=== PATIENT | male | born 1995 | race Two or more races ===

== ENCOUNTER → 2018-03-21 | Outpatient (REF) | payer MEDICAID, OTHER | LOC: M LAB REF 16:45 | DX: J06.0 Acute laryngopharyngitis (principal) ==

== ENCOUNTER 2019-02-01 15:58 | Emergency (ER) | payer MEDICAID, SELFPAY ==
[~2019-02-01] VITALS: Ht 182.9 cm; Wt 113.7 kg
[2019-02-01 15:59] VITALS: BP 179/88
[2019-02-01] MEDS ORDERED: ACET-683 PO (16:04)
[2019-02-01] MEDS ORDERED: IBUP1TAB7 PO (16:04)
[2019-02-01] MEDS ORDERED: PERC5TAB12 PO (17:38)
[2019-02-01] MEDS ORDERED: CLIN150C14 PO (17:38)
== END 2019-02-01 17:49 | disposition home or self-care (01) ==
LOC: M ED 15:58
DX: K04.7 Periapical abscess without sinus (principal); F17.200 Nicotine dependence, unspecified, uncomplicated; Z88.0 Allergy status to penicillin; Z88.1 Allergy status to other antibiotic agents

== ENCOUNTER 2019-02-01 18:08 | Emergency (ER) | payer SELFPAY ==
[~2019-02-01] VITALS: Ht 182.9 cm; Wt 113.6 kg
[~2019-02-01 18:08] MED LIST: ACET-683 PO; CLIN150C14 PO; IBUP1TAB7 PO; PERC5TAB12 PO
[2019-02-01 18:09] VITALS: BP 156/89
[2019-02-01] MEDS ORDERED: CLINDAMYCIN 150 MG CAP PO ONE (18:30)
[2019-02-01] MEDS ORDERED: PERCOCET 5MG/325MG TAB PO ONE (18:30)
== END 2019-02-01 18:42 | disposition home or self-care (01) ==
LOC: M ED 18:08
DX: Z76.0 Encounter for issue of repeat prescription (principal); K04.7 Periapical abscess without sinus; F17.200 Nicotine dependence, unspecified, uncomplicated; Z88.1 Allergy status to other antibiotic agents; Z88.0 Allergy status to penicillin

== ENCOUNTER 2019-03-17 15:43 | Emergency (ER) | payer SELFPAY ==
[~2019-03-17] VITALS: Ht 182.9 cm; Wt 109.1 kg
[2019-03-17 15:43] VITALS: BP 139/87
== END 2019-03-17 17:28 | disposition left against medical advice (07) ==
LOC: M ED 15:43
DX: Z53.21 Procedure and treatment not carried out due to patient leaving prior to being seen by health care provider (principal)

== ENCOUNTER 2019-04-06 12:08 | Emergency (ER) | payer MEDICAID, SELFPAY ==
[~2019-04-06] VITALS: Ht 182.9 cm; Wt 118.2 kg
--- NOTE | 2019-04-06 13:55 | REP ---
LEFT LOWER EXTREMITY DUPLEX DOPPLER VENOUS ULTRASOUND: Real-time compression and duplex Doppler interrogation of left lower extremity deep venous system is performed. There is thrombus in the peripheral superficial femoral vein as well as throughout the popliteal vein extending into the trifurcations veins in the upper left calf. No thrombus is seen in the more proximal superficial femoral vein nor in the common femoral vein. IMPRESSION: Deep vein thrombosis distal left superficial femoral vein and popliteal vein. Electronically Signed by Domingo Whitfield MD 04/06/2019 03:54 P
[2019-04-06 14:11] LABS: INR 1.05; PROTHROMBIN TIME 13.4 SECONDS (11.8-14.0)
[2019-04-06 14:12] LABS: PARTIAL THROMBOPLASTIN TIME 47.6 SECONDS (25.0-38.4)
[2019-04-06 14:23] LABS: NT-PRO BNP 33 PG/ML (<125); TROPONIN I < 0.02 NG/ML (< 0.10)
[2019-04-06] MEDS ORDERED: PERCOCET 5MG/325MG TAB PO ONE (14:45)
[2019-04-06] MEDS ORDERED: ELIQ5TAB PO (15:26)
[2019-04-06 15:42] VITALS: BP 155/83
[2019-04-06] MEDS ORDERED: NORCO 5/325MG TABLET (BULK FOR ED) PO ONE (15:45)
--- NOTE | 2019-04-06 17:02 | ECGEPIP ---
[facility] - ED Test Date: 2019-04-06 Pat Name: LULI SANDERS Department: Room: - Gender: Male Floor Manager: JHOANA : 1995 Requested By: BRYAN Bernstein PA-C Order Number: [id number] Reading MD: Eduarda Florian Measurements Intervals [place] Rate: 69 P: 42 CA: 149 QRS: 9 QRSD: 106 T: 17 QT: 380 QTc: 407 Interpretive Statements SINUS RHYTHM NO PRIOR Electronically Signed on 04-06-2019 17:01:58 EST by Eduarda Florian
[2019-04-07 11:39] LABS: PTT LUPUS TYPE ANTICOAG SCREEN 2.2 (0-1.2)
[2019-04-07 11:48] LABS: DRVV CONFIRM 36.2 SEC; LUPUS CONFIRM RATIO 0.9
[2019-04-07 11:52] LABS: NORMALIZED RATIO 2.44 (0.00-1.20)
[2019-04-11 00:07] LABS: HEXAGONAL PHASE PHOSPHOLIPID 11 sec (0-11)
[2019-04-13 10:06] LABS: ANTI THROMBIN 3 ANTIGEN IMMUNO 123 % (72-124); ANTI THROMBIN 3 FUNCT ACTIVITY 117 % (75-135); CARDIOLIPIN IGA ANTIBODY <9 APL U/mL (0-11); CARDIOLIPIN IGG ANTIBODY 66 GPL U/mL (0-14); CARDIOLIPIN IGM ANTIBODY 19 MPL U/mL (0-12); PHOSPHOLIPIDS LEVEL 224 mg/dL (150-250); PROTEIN C FUNCTIONAL ACTIVITY 124 % (73-180); PROTEIN S FUNCTIONAL ACTIVITY 81 % (63-140)
== END 2019-04-06 15:41 | disposition left against medical advice (07) ==
LOC: M ED 12:08
DX: I82.402 Acute embolism and thrombosis of unspecified deep veins of left lower extremity (principal); Z53.21 Procedure and treatment not carried out due to patient leaving prior to being seen by health care provider; F17.200 Nicotine dependence, unspecified, uncomplicated; Z88.0 Allergy status to penicillin; Z88.1 Allergy status to other antibiotic agents

== ENCOUNTER 2019-07-02 12:56 | Emergency (ER) | payer MEDICAID, OTHER ==
[~2019-07-02] VITALS: Ht 182.9 cm; Wt 117.3 kg
[~2019-07-02 12:56] MED LIST changes: +ELIQ5TAB PO
[2019-07-02] MEDS ORDERED: ELIQ5TAB PO (13:04)
[2019-07-02 13:46] LABS: BASO # 0.1 10^3/uL (0.0-0.2); EOS # 0.2 10^3/uL (0.0-0.5); EOS % 3.1 % (0.0-3.0); HEMATOCRIT 51.2 % (42.0-52.0); HEMOGLOBIN 17.6 g/dl (13.5-17.5); LYMPH # 1.5 10^3/uL (1.5-5.0); LYMPH % 19.6 % (24.0-44.0); MEAN CORPUSCULAR HEMOGLOBIN 29.7 pg (27.0-33.0); MEAN CORPUSCULAR HGB CONC 34.4 g/dl (32.0-36.5); MEAN CORPUSCULAR VOLUME 86.3 fl (80.0-96.0); MONO # 0.8 10^3/uL (0.0-0.8); MONO % 10.2 % (0.0-5.0); NEUTROPHILS # 5.1 10^3/uL (1.5-8.5); NEUTROPHILS % 65.6 % (36.0-66.0); PLATELET COUNT, AUTOMATED 146 10^3/uL (150-450); RED BLOOD COUNT 5.93 10^6/uL (4.30-6.10); WHITE BLOOD COUNT 7.8 10^3/uL (4.0-10.0)
[2019-07-02 14:14] LABS: BLOOD UREA NITROGEN 9 MG/DL (7-18); CALCIUM LEVEL 9.5 MG/DL (8.5-10.1); CARBON DIOXIDE LEVEL 26 MEQ/L (21-32); CHLORIDE LEVEL 104 MEQ/L (98-107); CREATININE FOR GFR 0.96 MG/DL (0.70-1.30); GLOMERULAR FILTRATION RATE > 60.0 (>60); GLUCOSE, FASTING 136 MG/DL (70-100); POTASSIUM SERUM 3.5 MEQ/L (3.5-5.1); SODIUM LEVEL 136 MEQ/L (136-145)
--- NOTE | 2019-07-02 14:17 | REP ---
CHEST, TWO VIEWS: There is no evidence of acute infiltrate. No pleural effusion is seen. The heart is normal in size. The mediastinal silhouette is unremarkable. The visualized osseous structures are intact. IMPRESSION: No acute pulmonary disease. Electronically Signed by Domingo Whitfield MD 07/03/2019 04:42 P
[2019-07-02] MEDS ORDERED: ISOVUE-370 76% 100ML VIAL (Q9967) As Ordered ONE (14:46)
--- NOTE | 2019-07-02 15:42 | REP ---
CT pulmonary angiogram: With IV contrast. History: DVT. Chest pain. Possible pulmonary embolus. Comparison studies: No comparison chest CT study. Contrast dose: 75 mL of Isovue [address] technique: Helical scanning is acquired and overlapping 1.5 mm and contiguous 3 mm axial images are reformatted. In addition, maximum intensity projection and multiplanar re-formation images are generated in sagittal and coronal imaging projections. CT pulmonary angiographic findings: There is good opacification of the pulmonary arterial tree. There is no CT evidence of pulmonary embolus. There is no evidence of aortic dissection or aneurysm. No hilar or mediastinal mass or adenopathy is observed. No pleural or pericardial effusion is seen. The lung yung are clear. No extrathoracic mass or adenopathy is seen. There is bilateral gynecomastia and bilateral nipple jewelry is noted. No significant bony abnormality is seen. There is diffuse fatty infiltration of the liver moderate in degree. No adrenal lesion is seen. The visualized upper abdominal structures are otherwise unremarkable. Impression: No CT evidence of pulmonary embolus. No active cardiopulmonary disease seen. Moderate diffuse fatty infiltration of the liver. Electronically Signed by Nicolas Villalobos MD 07/02/2019 08:08 P
[2019-07-02 16:06] VITALS: BP 150/78
--- NOTE | 2019-07-02 17:34 | ECGEPIP ---
[facility] - ED Test Date: 2019-07-02 Pat Name: LULI SANDERS Department: Room: - Gender: Male Trimmer Sawyer: britton : 1995 Requested By: Eduarda Florian Order Number: [id number] Reading MD: Thierry Quinones Measurements Intervals [place] Rate: 66 P: 49 MI: 155 QRS: 16 QRSD: 108 T: 24 QT: 403 QTc: 423 Interpretive Statements SINUS RHYTHM POOR R WAVE PROGRESSION POSSIBLE INCOMPLETE RIGHT BUNDLE BRANCH BLOCK SIMILAR TO 04/06/19 Electronically Signed on 07-02-2019 17:34:03 EST by Thierry Quinones
== END 2019-07-02 16:29 | disposition home or self-care (01) ==
LOC: M ED 12:56
DX: R07.89 Other chest pain (principal); K76.0 Fatty (change of) liver, not elsewhere classified; Z86.718 Personal history of other venous thrombosis and embolism; F17.200 Nicotine dependence, unspecified, uncomplicated; Z79.01 Long term (current) use of anticoagulants; Z88.0 Allergy status to penicillin
CPT/HCPCS: 71046; 71275; 80048; 85025; 85379; 93005; 99284; Q9967

== ENCOUNTER → 2021-11-16 | Outpatient (REF) | payer OTHER, MEDICAID ==
[~2021-11-16] MED LIST changes: -CLIN150C14 PO; +CLIN150C17 PO
[2021-11-17 12:26] LABS: APPEARANCE, URINE HAZY (CLEAR); BACTERIA, URINE AUTO NEGATIVE (NEGATIVE); BILIRUBIN, URINE AUTO NEGATIVE (NEGATIVE); BLOOD, URINE BLOOD NEGATIVE (NEGATIVE); CALCIUM OXALATE CRYSTALS SMALL; COLOR, URINE YELLOW (YELLOW); GLUCOSE, URINE (UA) AUTO NEGATIVE (NEGATIVE); KETONE, URINE AUTO NEGATIVE (NEGATIVE); LEUKOCYTE ESTERASE, URINE AUTO NEGATIVE (NEGATIVE); MUCUS, URINE SMALL (NEGATIVE); NITRITE, URINE AUTO NEGATIVE (NEGATIVE); PROTEIN, URINE AUTO NEGATIVE (NEGATIVE); RBC, URINE AUTO 0 /HPF (0-3); SPECIFIC GRAVITY URINE AUTO 1.025 (1.002-1.035); SQUAMOUS EPITHELIAL CELL UR AU 0 /HPF (0-6); UROBILINOGEN, URINE AUTO 0.2 mg/dL (0.0-2.0); WBC, URINE AUTO 1 /HPF (0-3)
== END ==
LOC: M LAB REF 11:12
PROVIDERS: ATTEND Physician Assistant
DX: R30.9 Painful micturition, unspecified (principal)

== ENCOUNTER → 2022-11-01 | Outpatient (CLI) | payer OTHER, MEDICAID ==
[2022-11-01 16:57] LABS: HEMATOCRIT 42.6 % (42.0-52.0); HEMOGLOBIN 13.9 g/dl (13.5-17.5); MEAN CORPUSCULAR HEMOGLOBIN 29.8 pg (27.0-33.0); MEAN CORPUSCULAR HGB CONC 32.6 g/dl (32.0-36.5); MEAN CORPUSCULAR VOLUME 91.2 fl (80.0-96.0); PLATELET COUNT, AUTOMATED 163 10^3/uL (150-450); RED BLOOD COUNT 4.67 10^6/uL (4.30-6.10); WHITE BLOOD COUNT 6.6 10^3/uL (4.0-10.0)
[2022-11-01 17:16] LABS: HEMOGLOBIN A1c 5.7 % (4.0-6.0)
[2022-11-01 17:27] LABS: CHOLESTEROL RISK RATIO 3.22 (<5); HDL CHOLESTEROL 44.7 MG/DL (>40); LDL CHOLESTEROL 71.3 MG/DL (<100); NON-HDL-C 99.3 MG/DL
[2022-11-01 17:28] LABS: CREATININE, URINE 71.4 MG/DL
== END ==
LOC: M WUC 11:16
PROVIDERS: ATTEND Physician Assistant
DX: E11.9 Type 2 diabetes mellitus without complications (principal)

== ENCOUNTER → 2023-07-10 | Outpatient (CLI) | payer OTHER, MEDICAID ==
[~2023-07-10] MED LIST changes: +AMLO10TA PO; +DEPA250T32 PO; +ENOX100I3 SC; +FAMO20TA5; +FINA5TAB2; +LEXA1TAB2 PO; +LOVE1INJ SC; +METF-839 PO; +METH5SOL10 PO; +MULT-90 PO; +OXYC-517 PO; +PROTPAK PO; +QUET1TAB17 PO; +TOPA1TAB PO
== END ==
LOC: M SOG 08:08
PROVIDERS: ATTEND Physician Assistant
DX: M25.532 Pain in left wrist (principal); M25.572 Pain in left ankle and joints of left foot

== ENCOUNTER → 2023-11-14 | Outpatient (REF) | payer OTHER, MEDICAID ==
[2023-11-15 17:30] LABS: CREATININE, URINE 118.1 MG/DL
[2023-11-15 17:31] LABS: MAU/CREAT RATIO 4.2 MCG/MG (0.0-30.0)
== END ==
LOC: M LAB REF 16:08
PROVIDERS: ATTEND Physician Assistant
DX: E11.9 Type 2 diabetes mellitus without complications (principal)

== ENCOUNTER 2024-05-03 01:26 | Emergency (ER) | payer MEDICAID, MEDICARE, OTHER ==
[2024-05-03 06:46] VITALS: BP 121/73; TEMP 97.3; O2SAT 99
== END 2024-05-03 06:56 | disposition home or self-care (01) ==
LOC: M ED 01:26
DX: S00.03XA Contusion of scalp, initial encounter (principal); Y04.0XXA Assault by unarmed brawl or fight, initial encounter; Z87.820 Personal history of traumatic brain injury; Z88.0 Allergy status to penicillin; Z88.1 Allergy status to other antibiotic agents; Y92.009 Unspecified place in unspecified non-institutional (private) residence as the place of occurrence of the external cause; Y93.89 Activity, other specified; Y99.9 Unspecified external cause status; Z79.899 Other long term (current) drug therapy

== ENCOUNTER → 2024-07-02 | Outpatient (CLI) | payer OTHER ==
[2024-07-02 17:21] LABS: HEMATOCRIT 43.6 % (42.0-52.0); HEMOGLOBIN 14.2 g/dl (13.5-17.5); MEAN CORPUSCULAR HEMOGLOBIN 30.3 pg (27.0-33.0); MEAN CORPUSCULAR HGB CONC 32.6 g/dl (32.0-36.5); MEAN CORPUSCULAR VOLUME 93.2 fl (80.0-96.0); PLATELET COUNT, AUTOMATED 140 10^3/uL (150-450); RED BLOOD COUNT 4.68 10^6/uL (4.30-6.10); WHITE BLOOD COUNT 7.8 10^3/uL (4.0-10.0)
[2024-07-02 17:54] LABS: ALBUMIN 4.1 G/DL (3.2-5.2); ALKALINE PHOSPHATASE 49 U/L (40-129); ALT/SGPT 16 U/L (7.0-40); AST/SGOT 19 U/L (<34); BILIRUBIN,TOTAL 0.2 MG/DL (0.3-1.2); BLOOD UREA NITROGEN 15 MG/DL (9-23); CALCIUM LEVEL 9.2 MG/DL (8.5-10.1); CARBON DIOXIDE LEVEL 25 MMOL/L (20-31); CHLORIDE LEVEL 109 MMOL/L (98-107); CHOLESTEROL LEVEL 140 MG/DL (<200); CHOLESTEROL RISK RATIO 3.01 (<5); CREATININE FOR GFR 0.75 MG/DL (0.70-1.30); GLOMERULAR FILTRATION RATE > 60.0 (>60); GLUCOSE, FASTING 93 MG/DL (60-100); HDL CHOLESTEROL 46.4 MG/DL (>40); LDL CHOLESTEROL 54.4 MG/DL (<100); NON-HDL-C 93.6 MG/DL; POTASSIUM SERUM 4.5 MMOL/L (3.5-5.1); SODIUM LEVEL 144 MMOL/L (136-145); TOTAL PROTEIN 7.6 G/DL (5.7-8.2); TRIGLYCERIDES LEVEL 196 MG/DL (<150)
[2024-07-02 18:07] LABS: CREATININE, URINE 283.5 MG/DL; MAU/CREAT RATIO 5.6 MCG/MG (0.0-30.0)
== END ==
LOC: M WUC 12:02
PROVIDERS: ATTEND Physician Assistant
DX: E11.9 Type 2 diabetes mellitus without complications (principal)

== ENCOUNTER 2024-08-12 18:05 | Emergency (ER) | payer OTHER ==
[~2024-08-12] VITALS: Ht 182.9 cm; Wt 90.9 kg
[2024-08-12 18:25] VITALS: TEMP 97.2
[2024-08-12] MEDS: DIVALPROEX 250MG *ER* TAB PO ONE (20:01)
[2024-08-12] MEDS: oxyCODONE 5MG TAB PO ONE (20:01)
[2024-08-12 20:18] VITALS: BP 108/63; O2SAT 98
== END 2024-08-12 20:27 | disposition short-term general hospital (02) ==
LOC: M ED 18:05 → EDBD 18:05 → M ED 20:27
DX: S00.93XA Contusion of unspecified part of head, initial encounter (principal); S00.81XA Abrasion of other part of head, initial encounter; W06.XXXA Fall from bed, initial encounter; G93.89 Other specified disorders of brain; Z86.79 Personal history of other diseases of the circulatory system; Y92.003 Bedroom of unspecified non-institutional (private) residence as the place of occurrence of the external cause; Y93.89 Activity, other specified; Y99.9 Unspecified external cause status; Z79.899 Other long term (current) drug therapy; Z79.4 Long term (current) use of insulin; Z88.0 Allergy status to penicillin; Z88.1 Allergy status to other antibiotic agents; Z88.5 Allergy status to narcotic agent

== ENCOUNTER 2024-11-04 15:26 | Emergency (ER) | payer MEDICARE, MEDICAID ==
[~2024-11-04] VITALS: Ht 182.9 cm; Wt 90.0 kg
[~2024-11-04 15:26] MED LIST changes: +AMLO-751 PO; -AMLO10TA PO; -DEPA250T32 PO; +DIVA-65 PO; +TRAZ-252 PO; +ZOLO100T PO
[2024-11-04 15:38] VITALS: BP 142/72; TEMP 98.1; O2SAT 98
== END 2024-11-04 16:07 | disposition left against medical advice (07) ==
LOC: EDBD 15:26 → M ED 15:26
DX: Z53.21 Procedure and treatment not carried out due to patient leaving prior to being seen by health care provider (principal)

== ENCOUNTER 2024-11-08 19:18 | Emergency (ER) | payer MEDICARE, MEDICAID ==
[2024-11-08 19:36] VITALS: TEMP 97.1
[2024-11-08 22:05] LABS: BASO # 0.1 10^3/uL (0.0-0.2); BASO % 0.6 % (0.0-1.0); EOS # 0.1 10^3/uL (0.0-0.5); EOS % 0.8 % (0.0-3.0); LYMPH # 2.7 10^3/uL (1.5-5.0); LYMPH % 31.2 % (24.0-44.0); MONO # 1.1 10^3/uL (0.0-0.8); MONO % 12.6 % (2.0-8.0); NEUTROPHILS # 4.7 10^3/uL (1.5-8.5); NEUTROPHILS % 54.0 % (36.0-66.0); PLATELET COUNT, AUTOMATED 165 10^3/uL (150-450)
[2024-11-08] MEDS: NS (Normal Saline) 0.9% 1,000 ML IV ONE (23:13)
[2024-11-09 00:28] VITALS: BP 115/75; O2SAT 98
== END 2024-11-09 00:36 | disposition home or self-care (01) ==
LOC: M ED 19:18
DX: M25.512 Pain in left shoulder (principal); W06.XXXA Fall from bed, initial encounter; Z59.41 Food insecurity; M70.22 Olecranon bursitis, left elbow; E11.9 Type 2 diabetes mellitus without complications; F31.9 Bipolar disorder, unspecified; F43.10 Post-traumatic stress disorder, unspecified; Z79.4 Long term (current) use of insulin; Z79.899 Other long term (current) drug therapy; Z88.0 Allergy status to penicillin; Z88.1 Allergy status to other antibiotic agents; Z88.5 Allergy status to narcotic agent; Z88.8 Allergy status to other drugs, medicaments and biological substances; Y92.009 Unspecified place in unspecified non-institutional (private) residence as the place of occurrence of the external cause; Y93.89 Activity, other specified; Y99.9 Unspecified external cause status

== ENCOUNTER 2024-11-11 02:01 | Emergency (ER) | payer MEDICARE, MEDICAID ==
[~2024-11-11] VITALS: Ht 182.9 cm; Wt 90.9 kg
[2024-11-11 02:20] VITALS: BP 116/59; TEMP 98.3; O2SAT 99
== END 2024-11-11 03:10 | disposition left against medical advice (07) ==
LOC: M ED 02:01 → EDBD 02:01 → M ED 03:10
DX: Z53.21 Procedure and treatment not carried out due to patient leaving prior to being seen by health care provider (principal)

== ENCOUNTER 2024-11-21 02:33 | Observation (INO) | payer MEDICARE, MEDICAID ==
[~2024-11-21] VITALS: Ht 182.9 cm; Wt 91.6 kg
[~2024-11-21 02:33] MED LIST changes: -FAMO20TA5; +FAMO20TA5 PO; -FINA5TAB2; +FINA5TAB2 PO
[2024-11-21 03:49] LABS: PLATELET COUNT, AUTOMATED 223 10^3/uL (150-450)
[2024-11-21 04:05] LABS: ETHYL ALCOHOL (ETHANOL) < 0.003 % (0.000-0.010)
[2024-11-21 04:06] LABS: SALICYLATE LEVEL < 3.0 MG/DL (<30)
[2024-11-21 04:07] LABS: ALT/SGPT 21 U/L (7.0-40); AST/SGOT 17 U/L (<34); CALCIUM LEVEL 9.6 MG/DL (8.5-10.1); CARBON DIOXIDE LEVEL 28 MMOL/L (20-31); CHLORIDE LEVEL 104 MMOL/L (98-107); CREATININE FOR GFR 0.70 MG/DL (0.70-1.30); GLOMERULAR FILTRATION RATE > 90.0 (>60); POTASSIUM SERUM 4.6 MMOL/L (3.5-5.1); SODIUM LEVEL 143 MMOL/L (136-145)
[2024-11-21 04:14] LABS: AMPHETAMINES LEVEL URINE NEGATIVE (NEGATIVE); BENZODIAZEPINES URINE NEGATIVE (NEGATIVE)
[2024-11-21 04:15] LABS: BARBITURATES URINE NEGATIVE (NEGATIVE); COCAINE METABOLITE URINE NEGATIVE (NEGATIVE); METHADONE URINE NEGATIVE (NEGATIVE); OPIATES URINE NEGATIVE (NEGATIVE); PHENCYCLIDINE URINE NEGATIVE (NEGATIVE)
[2024-11-21 04:17] LABS: CANNABINOIDS URINE POSITIVE (NEGATIVE)
[2024-11-21] MEDS ORDERED: TAMS1CAP17 PO (05:58)
[2024-11-21] MEDS ORDERED: B-1100TA2 PO (05:58)
[2024-11-21] MEDS ORDERED: DILT60CASR PO (05:58)
[2024-11-21] MEDS ORDERED: ALBU8.5H INH (05:58)
[2024-11-21] MEDS ORDERED: CETI-24 PO (05:58)
[2024-11-21] MEDS ORDERED: HOME MED LIST COMPLETE! XX SCH (06:05)
[2024-11-21] MEDS: ACETAMINOPHEN 500 MG TAB PO ONE (08:13)
[2024-11-21] MEDS ORDERED: IBUPROFEN 400 MG TAB PO PRN (11:20)
[2024-11-21] MEDS ORDERED: MAALOX 30 ML SUSP *UDC PO PRN (11:20)
[2024-11-21] MEDS ORDERED: LORazepam 1 MG TAB PO PRN (11:20)
[2024-11-21] MEDS ORDERED: HALOPERIDOL 5 MG TAB PO PRN (11:20)
[2024-11-21] MEDS ORDERED: MOM 30 ML SUSPENSION UDC PO PRN (11:20)
[2024-11-21] MEDS ORDERED: traZODone 50 MG TAB PO PRN (11:20)
[2024-11-21] MEDS ORDERED: ACETAMINOPHEN 325 MG TAB PO PRN (11:20)
[2024-11-21] MEDS ORDERED: ALBUTEROL 90 MCG/ACT 8 GM HFA INHALER INH PRN (11:20)
[2024-11-21] MEDS ORDERED: OLANZapine 5 MG TAB PO PRN (11:20)
[2024-11-21] MEDS: NICOTINE 14 MG/24 HR TRANSDERMAL TD SCH (11:57)
[2024-11-21] MEDS ORDERED: **NOTE PATIENT COMMENT** MISC XX SCH (16:25)
[2024-11-21] MEDS ORDERED: OXYC-517 PO (16:40)
[2024-11-21 17:05] LABS: VITAMIN B12 LEVEL 711 PG/ML (211-911)
[2024-11-21 17:06] LABS: FREE T4 1.12 NG/DL (0.89-1.76)
[2024-11-21 17:21] LABS: ESTIMATED AVERAGE GLUCOSE 120.0 MG/DL (60-110)
[2024-11-21 18:16] VITALS: BP 135/78; TEMP 98.6; O2SAT 95
[2024-11-21 20:00] VITALS: BP 134/87; TEMP 97; O2SAT 99
[2024-11-21] MEDS: FAMOTIDINE 20 MG TAB PO SCH (21:54)
[2024-11-21] MEDS: traZODone 50 MG TAB PO SCH (21:55)
[2024-11-21] MEDS: DIVALPROEX 250 MG TAB PO SCH (21:55)
[2024-11-21] MEDS: ENOXAPARIN 100 MG/1 ML SYRINGE (J1650 PER 10MG) SC SCH (21:57)
[2024-11-22 04:00] VITALS: BP 116/62; TEMP 97.7; O2SAT 93
[2024-11-22] MEDS ORDERED: metFORMIN 500 MG TAB PO SCH (09:00)
[2024-11-22] MEDS ORDERED: amLODIPine 10 MG TAB PO SCH (09:00)
[2024-11-22] MEDS: SERTRALINE 100 MG TAB PO SCH (09:22)
[2024-11-22] MEDS: TOPIRAMATE 25 MG TAB PO SCH (09:22)
[2024-11-22] MEDS: THIAMINE 100 MG TAB PO SCH (09:23)
[2024-11-22] MEDS: PANTOPRAZOLE 40MG TAB PO SCH (09:23)
[2024-11-22] MEDS: FINASTERIDE 5 MG TAB PO SCH (09:23)
[2024-11-22] MEDS: TAMSULOSIN 0.4 MG CAP PO SCH (09:23)
[2024-11-22] MEDS: dilTIAZem 120 MG **CD** CAPSULE PO SCH (09:24)
[2024-11-22 10:29] LABS: PLATELET COUNT, AUTOMATED 195 10^3/uL (150-450)
[2024-11-22 11:02] LABS: VALPROIC ACID (DEPAKOTE) 42.0 UG/ML (50.0-100.0)
[2024-11-22 11:03] LABS: CALCIUM LEVEL 9.0 MG/DL (8.5-10.1); CARBON DIOXIDE LEVEL 27 MMOL/L (20-31); CHLORIDE LEVEL 102 MMOL/L (98-107); CHOLESTEROL LEVEL 155 MG/DL (<200); CHOLESTEROL RISK RATIO 2.87 (<5); CREATININE FOR GFR 0.80 MG/DL (0.70-1.30); GLOMERULAR FILTRATION RATE > 90.0 (>60); LDL CHOLESTEROL 72.5 MG/DL (<100); MAGNESIUM LEVEL 2.0 MG/DL (1.8-2.4); NON-HDL-C 101.1 MG/DL; POTASSIUM SERUM 4.4 MMOL/L (3.5-5.1); SODIUM LEVEL 140 MMOL/L (136-145); TRIGLYCERIDES LEVEL 143 MG/DL (<150)
[2024-11-22 13:00] VITALS: BP 120/77; TEMP 97.7; O2SAT 96
[2024-11-22] MEDS ORDERED: ISOVUE-370 76% 100 ML VIAL As Ordered ONE (19:48)
[2024-11-22 20:00] VITALS: BP 122/88; TEMP 97.5; O2SAT 99
[2024-11-22] MEDS: MIRALAX *UNIT DOSE* 17 GM PACKET PO PRN (22:00)
[2024-11-22] MEDS: SENNA 8.6 MG TAB PO PRN (22:02)
[2024-11-22] MEDS: BISACODYL 10 MG SUPP PR PRN (22:02)
[2024-11-23 04:00] VITALS: BP 133/76; TEMP 97.3; O2SAT 100
[2024-11-23] MEDS: FLEET ENEMA PR PRN (05:09)
[2024-11-23 07:43] LABS: PLATELET COUNT, AUTOMATED 163 10^3/uL (150-450)
[2024-11-23 08:08] LABS: VALPROIC ACID (DEPAKOTE) 92.7 UG/ML (50.0-100.0)
[2024-11-23 08:10] LABS: CALCIUM LEVEL 8.8 MG/DL (8.5-10.1); CARBON DIOXIDE LEVEL 29 MMOL/L (20-31); CHLORIDE LEVEL 101 MMOL/L (98-107); CREATININE FOR GFR 0.73 MG/DL (0.70-1.30); GLOMERULAR FILTRATION RATE > 90.0 (>60); MAGNESIUM LEVEL 2.0 MG/DL (1.8-2.4); POTASSIUM SERUM 4.1 MMOL/L (3.5-5.1); SODIUM LEVEL 141 MMOL/L (136-145)
[2024-11-23] MEDS: MIRALAX *UNIT DOSE* 17 GM PACKET PO SCH (09:00)
[2024-11-23] MEDS: SENNOSIDES/DOCUSATE SODIUM 8.6 MG/50MG TAB PO SCH (09:00)
[2024-11-23] MEDS: DIVALPROEX 500 MG TAB PO SCH (09:18)
[2024-11-23 09:23] VITALS: BP 123/78
[2024-11-23 12:00] VITALS: BP 126/75; TEMP 96.6; O2SAT 100
[2024-11-23 21:29] VITALS: BP 112/59; TEMP 97.5; O2SAT 99
[2024-11-24 05:48] VITALS: BP 130/72; TEMP 97.5; O2SAT 98
[2024-11-24] MEDS ORDERED: DIVA-65 PO (12:04)
[2024-11-24] MEDS ORDERED: MAALOX 30 ML SUSP *UDC PO PRN (12:40)
[2024-11-24] MEDS ORDERED: ACETAMINOPHEN 325 MG TAB PO PRN (12:40)
[2024-11-24] MEDS ORDERED: IBUPROFEN 400 MG TAB PO PRN (12:40)
[2024-11-24] MEDS ORDERED: MOM 30 ML SUSPENSION UDC PO PRN (12:40)
== END 2024-11-24 14:55 ==
LOC: M ED 02:33 → M ED INP 02:34 → UNDOADMOB 11:18 → INTOOBSV 11:18 → M MS5PR 17:50 → M ED INP 17:50 → M MS5PR 17:50
PROVIDERS: ADMIT Internal Medicine; ATTEND Student in an Organized Health Care Education/Training Program
DX: R45.851 Suicidal ideations (principal); Z86.79 Personal history of other diseases of the circulatory system; I69.351 Hemiplegia and hemiparesis following cerebral infarction affecting right dominant side; Z79.01 Long term (current) use of anticoagulants; Z86.718 Personal history of other venous thrombosis and embolism; R73.03 Prediabetes; I10 Essential (primary) hypertension; F43.10 Post-traumatic stress disorder, unspecified; F32.A Depression, unspecified; K59.00 Constipation, unspecified; Z79.899 Other long term (current) drug therapy

== ENCOUNTER 2024-11-24 13:50 | Inpatient (IN) | payer MEDICARE, MEDICAID ==
[~2024-11-24] VITALS: Ht 182.9 cm; Wt 79.5 kg
[~2024-11-24 13:50] MED LIST changes: +ALBU8.5H INH; +B-1100TA2 PO; +CETI-24 PO; +DILT60CASR PO; +TAMS1CAP17 PO
[2024-11-24] MEDS ORDERED: MOM 30 ML SUSPENSION UDC PO PRN (14:10)
[2024-11-24] MEDS ORDERED: MAALOX 30 ML SUSP *UDC PO PRN (16:00)
[2024-11-24] MEDS ORDERED: ALBUTEROL 90 MCG/ACT 8 GM HFA INHALER INH PRN (16:00)
[2024-11-24] MEDS ORDERED: HOME MED LIST COMPLETE! XX SCH (16:10)
[2024-11-24 16:25] VITALS: BP 109/72; TEMP 97.8; O2SAT 97
[2024-11-24] MEDS: traZODone 50 MG TAB PO SCH (20:17)
[2024-11-24] MEDS: DIVALPROEX 500 MG TAB PO SCH (20:17)
[2024-11-24] MEDS: ACETAMINOPHEN 325 MG TAB PO PRN (20:18)
[2024-11-25 06:15] VITALS: BP_SYST 125; BP_SYST 141; BP_DIAS 56; BP_DIAS 72; TEMP 97.6; TEMP 97.7; O2SAT 100
[2024-11-25] MEDS: TAMSULOSIN 0.4 MG CAP PO SCH (09:16)
[2024-11-25] MEDS: TOPIRAMATE 25 MG TAB PO SCH (09:16)
[2024-11-25] MEDS: FINASTERIDE 5 MG TAB PO SCH (09:16)
[2024-11-25] MEDS: CETIRIZINE 10 MG TAB PO SCH (09:16)
[2024-11-25] MEDS: SERTRALINE 100 MG TAB PO SCH (09:16)
[2024-11-25] MEDS: THIAMINE 100 MG TAB PO SCH (09:16)
[2024-11-25 09:46] LABS: CREATININE FOR GFR 0.78 MG/DL (0.70-1.30); GLOMERULAR FILTRATION RATE > 90.0 (>60)
[2024-11-25] MEDS: IBUPROFEN 400 MG TAB PO PRN (11:16)
[2024-11-25] MEDS: ENOXAPARIN 100 MG/1 ML SYRINGE (J1650 PER 10MG) SC SCH (13:05)
[2024-11-25 15:45] VITALS: BP 133/80; TEMP 98; O2SAT 98
[2024-11-25] MEDS: ACETAMINOPHEN 325 MG TAB PO ONE (16:26)
[2024-11-25] MEDS: QUEtiapine FUMARATE 50MG TAB PO SCH (22:15)
[2024-11-26 06:46] VITALS: BP 132/59; TEMP 97.6; O2SAT 98
[2024-11-26 15:35] VITALS: BP 125/61; TEMP 98.5; O2SAT 98
[2024-11-26] MEDS: traZODone 50 MG TAB PO PRN (21:23)
[2024-11-27 06:56] VITALS: BP 103/58; TEMP 97.4; O2SAT 96
[2024-11-27] MEDS ORDERED: QUET50TA4 PO (09:25)
== END 2024-11-27 11:56 | disposition home or self-care (01) | DRG 881 ==
LOC: M PSY 15:05
PROVIDERS: ADMIT General Practice; ATTEND General Practice
DX: F32.A Depression, unspecified (principal); R45.851 Suicidal ideations; I69.354 Hemiplegia and hemiparesis following cerebral infarction affecting left non-dominant side; Z87.820 Personal history of traumatic brain injury; F12.90 Cannabis use, unspecified, uncomplicated; F17.200 Nicotine dependence, unspecified, uncomplicated; Z86.718 Personal history of other venous thrombosis and embolism; R73.03 Prediabetes; I10 Essential (primary) hypertension; F43.10 Post-traumatic stress disorder, unspecified; K59.00 Constipation, unspecified; Z79.01 Long term (current) use of anticoagulants; Z79.899 Other long term (current) drug therapy; Z88.0 Allergy status to penicillin; Z88.1 Allergy status to other antibiotic agents; Z88.5 Allergy status to narcotic agent; Z91.041 Radiographic dye allergy status

== ENCOUNTER 2024-11-30 18:07 | Emergency (ER) | payer MEDICARE, MEDICAID ==
[~2024-11-30] VITALS: Ht 182.9 cm; Wt 93.3 kg
[~2024-11-30 18:07] MED LIST changes: +QUET50TA4 PO
[2024-11-30 18:22] VITALS: BP 121/63; TEMP 99; O2SAT 99
== END 2024-11-30 19:31 | disposition left against medical advice (07) ==
LOC: M ED 18:07
DX: R53.1 Weakness (principal); R29.6 Repeated falls; I10 Essential (primary) hypertension; F43.10 Post-traumatic stress disorder, unspecified; F32.A Depression, unspecified; Z86.718 Personal history of other venous thrombosis and embolism; Z79.01 Long term (current) use of anticoagulants; Z91.041 Radiographic dye allergy status; Z88.0 Allergy status to penicillin; Z88.1 Allergy status to other antibiotic agents; Z88.5 Allergy status to narcotic agent; Z88.8 Allergy status to other drugs, medicaments and biological substances; Z79.52 Long term (current) use of systemic steroids; Z79.899 Other long term (current) drug therapy; Z53.9 Procedure and treatment not carried out, unspecified reason

== ENCOUNTER 2024-12-03 05:41 | Emergency (ER) | payer MEDICARE, MEDICAID ==
[~2024-12-03] VITALS: Ht 182.9 cm; Wt 79.5 kg
[2024-12-03 06:15] VITALS: BP 152/76; TEMP 97.8; O2SAT 97
[2024-12-03 06:51] LABS: PLATELET COUNT, AUTOMATED 189 10^3/uL (150-450)
[2024-12-03 07:18] LABS: ETHYL ALCOHOL (ETHANOL) 0.003 % (0.000-0.010)
[2024-12-03 07:20] LABS: ALT/SGPT 18 U/L (7.0-40); AST/SGOT 19 U/L (<34); CALCIUM LEVEL 9.1 MG/DL (8.5-10.1); CARBON DIOXIDE LEVEL 24 MMOL/L (20-31); CHLORIDE LEVEL 106 MMOL/L (98-107); CREATININE FOR GFR 0.68 MG/DL (0.70-1.30); GLOMERULAR FILTRATION RATE > 90.0 (>60); POTASSIUM SERUM 3.8 MMOL/L (3.5-5.1); SALICYLATE LEVEL < 3.0 MG/DL (<30); SODIUM LEVEL 145 MMOL/L (136-145)
[2024-12-03 07:29] LABS: AMPHETAMINES LEVEL URINE NEGATIVE (NEGATIVE); BARBITURATES URINE NEGATIVE (NEGATIVE); BENZODIAZEPINES URINE NEGATIVE (NEGATIVE); COCAINE METABOLITE URINE NEGATIVE (NEGATIVE); METHADONE URINE NEGATIVE (NEGATIVE); OPIATES URINE NEGATIVE (NEGATIVE); PHENCYCLIDINE URINE NEGATIVE (NEGATIVE)
[2024-12-03 07:34] LABS: CANNABINOIDS URINE POSITIVE (NEGATIVE)
[2024-12-03] MEDS: ONDANSETRON 4MG ORAL DISINTEGRATING TAB PO ONE (07:55)
[2024-12-03 08:56] LABS: VALPROIC ACID (DEPAKOTE) 94.8 UG/ML (50.0-100.0)
== END 2024-12-03 12:16 | disposition home or self-care (01) ==
LOC: M ED 05:41
DX: F32.A Depression, unspecified (principal); F41.9 Anxiety disorder, unspecified; F43.10 Post-traumatic stress disorder, unspecified; F90.9 Attention-deficit hyperactivity disorder, unspecified type; F12.10 Cannabis abuse, uncomplicated; Z86.73 Personal history of transient ischemic attack (TIA), and cerebral infarction without residual deficits; Z79.52 Long term (current) use of systemic steroids; Z79.899 Other long term (current) drug therapy; Z88.0 Allergy status to penicillin; Z88.1 Allergy status to other antibiotic agents; Z88.5 Allergy status to narcotic agent; Z91.041 Radiographic dye allergy status

== ENCOUNTER → 2024-12-21 | Outpatient (CLI) | payer MEDICARE, MEDICAID | LOC: M SOG 07:11 | PROVIDERS: ATTEND Orthopaedic Surgery | DX: M25.512 Pain in left shoulder (principal) ==